=== PATIENT | female | born 1985 | race Two or more races ===

== ENCOUNTER 2021-05-05 10:09 | Emergency (ER) | payer OTHER, SELFPAY ==
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
[2021-05-05 10:44] VITALS: BP 128/60; PULSE 81; RESP 18; TEMP 36.1; O2SAT 99; BMI 27.3
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
[2021-05-05 12:30] VITALS: BP 126/63; PULSE 65; RESP 14; TEMP 36.5; O2SAT 99
== END 2021-05-05 12:35 | disposition home or self-care (01) ==
PROVIDERS: Emergency Provider Internal Medicine
DX: S20.211A Contusion of right front wall of thorax, initial encounter (principal); S80.11XA Contusion of right lower leg, initial encounter; V43.52XA Car driver injured in collision with other type car in traffic accident, initial encounter; Y93.89 Activity, other specified; Y92.414 Local residential or business street as the place of occurrence of the external cause; Y99.9 Unspecified external cause status
CPT/HCPCS: 71046; 73590; 99283

== ENCOUNTER 2024-04-12 13:03 | Inpatient (IN) | payer SELFPAY ==
[2024-04-12] VITALS (7 sets, daily range): BP systolic 120–171; BP diastolic 46–89; PULSE 45–63; RESP 16–22; TEMP 35.8–36.7; O2SAT 96–100; BMI 32.2; BMI 31.6
--- NOTE | ~2024-04-12 | CT_ITS ---
EXAMINATION: CT ABDOMEN AND PELVIS WITH CONTRAST CLINICAL INFORMATION: Hemorrhagic right kidney. COMPARISON: Noncontrast CT abdomen and pelvis from the same day, April 12, 2024, at 2:54 PM TECHNIQUE: Multidetector volumetric images were obtained from the superior aspect of the liver through the pubic symphysis following administration 85 mL of Omnipaque 350 intravenous contrast. Sagittal and coronal reformatted images were obtained on the technologist's workstation. Oral contrast: No This CT examination was performed using dose optimization techniques as appropriate, variously including the following: *Automated exposure control *Adjustment of mA and/or kV according to patient size (this includes techniques or standardized protocols for targeted exams where dose is matched to indication/reason for exam; i.e. extremities or head) *Use of iterative reconstruction technique DLP: 521 mGy-cm FINDINGS: There is a 5 cm exophytic heterogeneously enhancing mass with the fat density component centered in the lateral midportion/lower pole junction of the right kidney. There is a moderate to large volume of increased density fluid involving the perinephric/paranephric compartment resulting in mass effect and extrinsic compression upon the main renal vessels involving mostly the main renal vein. There is active IV contrast pulling/gross extraluminal contrast within the posterior aspect of this mass. There is extrinsic compression upon the inferior vena cava. The hypodensity fluid extends throughout the right retroperitoneum to the iliac crest level anterior to the right psoas iliac muscle. Right-sided pleural effusion. Liver demonstrates no mass. No intrahepatic or extrahepatic biliary ductal dilatation. No focal pancreatic mass. No focal splenic lesion. There is a soft tissue fullness mass appearing right adrenal gland. No nodular lesion in the left adrenal gland. No aneurysm or dissection, abdominal aorta. No intestinal obstruction. No pneumatosis intestinalis. No pneumoperitoneum. Appendix is normal. Bladder is fluid-filled. No gross lesions in the uterus or the adnexa. Multilevel spondylosis more conspicuous at L5-S1. 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 Positive active bleed. Discussed with the requesting physician Dr. Scarlett Duque on April 12, 2024 at 3:30 PM Fleischner guidelines were followed. Electronically signed by: Silvestre Dugan MD 04/12/2024 03:50 PM EST
--- NOTE | ~2024-04-12 | IR_ITS ---
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 COMPARISON: CT abdomen and pelvis 04/12/2024 TECHNIQUE/FINDINGS: Informed consent was obtained following a discussion of the risks and benefits of the procedure with the patient. The patient was placed supine on the fluoroscopy table and the bilateral groins were sterilely prepped and draped. Following the administration of 1% lidocaine for local anesthesia, the right common femoral artery was punctured with a 21-gauge micropuncture needle under direct ultrasound guidance with permanent recordings. A 5 [place] by 45 cm destination sheath was placed. The right renal artery was then selected with a 5 [place] Cobra 2 catheter with the assistance of a 0.035 Glidewire. A right renal angiogram was performed which readily identifies hypervascular tumor arising from the midlower pole right kidney in concordance with recent cross-sectional imaging. We then inserted a 2.4 [place] micro-catheter and investigated several branches in order to determine the branches supplying the tumor for embolization. The lower anterior pole branch of the right renal artery was selected first. Angiogram does not demonstrate significant supply to the tumor. We then selected the lower posterior pole branch of the right renal artery. Angiograms demonstrates 3 third branches with direct supply to the tumor. We selected the most lateral branch first. Angiogram demonstrates supply to the renal tumor with only minimal supply to normal adjacent renal parenchyma. Furthermore, injection into this branch also refluxes into the remaining 2 branches seen to supply the renal tumor. We therefore elected to embolize from this position. Embolization was then performed utilizing 0.5 vial of 100-300 um embosphere particles followed by 0.125 vials of 300-500 um embosphere particles to stasis. Angiogram demonstrates successful embolization however, the medial third order branch is still seen to have some antegrade flow. We then selected this branch. Angiogram demonstrates minimal antegrade flow into a portion of the renal tumor. We therefore embolized with an additional 0.125 vials of 300-500 um embosphere particles to stasis. Angiogram demonstrates successful embolization of this branch. The microcatheter was removed. Right renal angiogram demonstrates successful embolization of the right renal tumor with preserved perfusion to most of the remainder of the kidney. Satisfied with our result we elected terminated the procedure. The 5 [place] x 45 cm sheath was exchanged for a 5 [place] x 11 sheath. Angiogram through the sheath demonstrates no evidence of injury to the right common femoral artery with good flow down the leg. Hemostasis was then achieved with a celt device. A sterile dressing was applied. Patient tolerated procedure well without immediate application. FLUOROSCOPY TIME: 13.7 minutes DOSE AREA PRODUCT: 1550 uGy-m2 (microgray-meter squared) The procedure was performed under moderate sedation utilizing fentanyl and Versed with a dedicated nurse for delivering the medication as well as monitoring of vital signs. Sedation time: 70 minutes IR/IR Embolization Tumor IMPRESSION: Successful embolization of right renal tumor is detailed above. Electronically signed by: Víctor Kirby MD 04/14/2024 04:40 PM [facility]
--- NOTE | ~2024-04-12 | CT_ITS ---
EXAMINATION: CT ABDOMEN AND PELVIS WITHOUT CONTRAST CLINICAL INFORMATION: Right flank pain. COMPARISON: None available. TECHNIQUE: Multidetector volumetric imaging was performed from the superior aspect of the liver through the pubic symphysis. Sagittal and coronal reformatted images were obtained on the technologist's workstation. This CT examination was performed using dose optimization techniques as appropriate, variously including the following: *Automated exposure control *Adjustment of mA and/or kV according to patient size (this includes techniques or standardized protocols for targeted exams where dose is matched to indication/reason for exam; i.e. extremities or head) *Use of iterative reconstruction technique DLP: 539 mGy-cm FINDINGS: Inadequate evaluation of the intra-abdominal organs and vascular structures due to lack of IV contrast. LUNG BASES: Right-sided pleural effusion, small volume. Compression atelectasis right lung base. LIVER, GALLBLADDER, AND BILIARY TREE: Liver measures 19 cm. No pericholecystic fluid collection or gallbladder wall thickening. No intrahepatic or extrahepatic biliary ductal dilatation. PANCREAS: No peripancreatic fluid collections. No main pancreatic ductal dilatation. SPLEEN: 5 cm. Small accessory spleen. ADRENAL GLANDS: 2.5 cm hyperdense nodule, right adrenal gland. No nodular lesion in the left adrenal gland. KIDNEYS AND URETERS: There is a moderate to large volume of increased density fluid within the right kidney and into the perinephric/perirenal compartment extending throughout the right retroperitoneum to the iliac crest level. There is a probable 5 cm mixed fat and increased density lesion within exophytic morphology centered in the lateral midportion/lower pole junction of the right kidney. There is extrinsic compression deformity and displacement of the right main renal vessels in the inferior vena cava, anterior medially. Left kidney: No hydronephrosis or nephrolithiasis. Normal size. BLADDER: Fluid-filled. GASTROINTESTINAL TRACT: Appendix is normal. No pneumoperitoneum. No intestinal obstruction pattern. No pneumatosis intestinalis. Small trace amount of free fluid in the cul-de-sac. ABDOMINAL WALL: Small fat-containing umbilical hernia with diastases abdominal rectus muscles. LYMPH NODES: No gross lymphadenopathy. VASCULAR: No aneurysm, abdominal aorta. PELVIC VISCERA: The uterus and adnexa are not enlarged. OSSEOUS STRUCTURES: Spondylosis, L5-S1 CT/CT abdomen pelvis wo IV con IMPRESSION: Concerning acute hemorrhagic mass, right kidney with a moderate to large hemorrhage/hematoma, retroperitoneum. Recommend IV contrast enhancement. Fleischner guidelines were followed. Electronically signed by: Silvestre Dugan MD 04/12/2024 03:56 PM [facility] TRUJILL[facility]
--- NOTE | 2024-04-12 13:08 | ED_ITS ---
HPI - General Adult General Chief complaint: Abdominal Pain Stated complaint: Kidney stone Time Seen by Provider: 04/12/24 13:46 Source: patient Mode of arrival: ambulatory Limitations: no limitations History of Present Illness ED Provider: PERLA FOX PA-C HPI narrative: 39 year old female with pmhx significant for nephrolithiasis presents to the ED today for evaluation of right lower abdominal pain which began acutely approximately 1 hour ago while she was sitting down at work. Pain has been constant and increasing in intensity since onset. Pain is now radiating to her right upper quadrant. Reports associated nausea and vomiting. Denies chance of secondary to tubal ligation. Denies any other surgical history. Admits to history of renal stones and states she was able to pass them on her own. States this feels similar. Denies fever, chills, constipation, diarrhea, dysuria, hematuria, flank pain. Related Data Home Medications ?Medication ?Instructions ?Recorded ?Confirmed No Known Home Meds 04/12/24 04/12/24 Allergies Allergy/AdvReac Type Severity Reaction Status Date / Time tree nut Allergy Anaphylaxis Verified 04/12/24 13:09 Review of Systems 2 Review of Systems: Constitutional: No fever, chills, fatigue, night sweats, weight changes ENT/Mouth: No ear pain, hearing loss, nasal congestion, sinus pain, rhinorrhea, sore throat Eyes: No eye pain, swelling, redness, vision changes, discharge Cardio: No chest pain, palpitations, NELSON, orthopnea, peripheral edema Pulm: No SOB, cough, sputum, wheezing, dyspnea, hemoptysis GI: No hematemesis, diarrhea, constipation, hematochezia, melena, +nausea, +vomiting, +abdominal pain : No irregular bleeding, dysuria, frequency, urgency, hesitancy, hematuria, flank pain, urinary flow changes, urinary incontinence or retention MSK: No back pain, neck pain, joint pain, myalgias Skin: No lesions, rashes Neuro: No weakness, numbness, paresthesias, LOC, dizziness, headache Psych: No anxiety/panic, depression, SI/HI, AH/VH All other systems reviewed and are negative. [facility] Past Medical History Attestation statement: The following information was validated with the patient. Source: old records reviewed and nursing notes reviewed Medical History Hearing loss Tinnitus Social History Social History Household Members: Children Housing: House Patient Tobacco Use Status: Never used Tobacco e-Cigarette/Vaping Use: Never Used Substance Use Type: Marijuana Physical Exam ED Vital Signs: Vital Signs - 24 hr 04/12/24 13:06 04/12/24 13:49 04/12/24 15:25 Temperature 96.4 F L 97.6 F 97.8 F Pulse Rate 63 53 59 Respiratory Rate 16 18 22 H Blood Pressure 145/83 H 152/77 H 171/74 H Pulse Oximetry 98 100 100 Oxygen Delivery Method Room Air Room Air Room Air 04/12/24 16:36 04/12/24 18:25 Temperature 97.6 F 97.6 F Pulse Rate 45 L 55 Respiratory Rate 18 16 Blood Pressure 160/89 H 120/46 L Pulse Oximetry 97 Oxygen Delivery Method Room Air BMI result Body Mass Index 32.2 hypertensive, afebrile General: Diaphoretic, uncomfortable appearing Skin: Warm, intact. No rashes or lesions. Head: Normocephalic, atraumatic. EENT: Hearing is intact b/l. Conjunctiva clear. PERRLA. EOM intact. Moist mucous membranes.? Neck: Supple without LAD Cardiac: Chest wall symmetric. RRR Lungs: Normal respiratory effort without accessory muscle use. CTA bilaterally Abdomen:+ttp of RLQ and RUQ with guarding. no rebound tenderness. negative rosving sign. negative connor sign. right CVAT. Back: No midline spinous or paraspinal tenderness. No step off deformity. Ext: Upper and lower extremities atraumatic, without tenderness, deformity, swelling or erythema. Full ROM throughout. Neuro: AOx3. Normal speech. Ambulating with steady gait. Psych: Appropriate mood and affect. Responds appropriately to questions. Course Course Course Narrative: RME, this is a rapid medical exam performed by Husam Epps please refer to primary provider for complete H&P- 39-year-old female presents for evaluation of right flank pain. The pain started about an hour ago. She has a history of kidney stones. Plan for labs, urinalysis, CT scan of the abdomen pelvis. Reevaluation(s) Reevaluation #1: 1413 -- Patient now endorsing midsternal chest pain, approximately 15 minutes after she received morphine and zofran. Pain does not radiate. EKG order placed. 1528 -- EKG showing sinus bradycardia with sinus arrhythmia. no acute ischemic changes ot ST elevations. CBC showing leukocytosis to 14. No anemia. H&H stable. Chemistry without acute electrolyte abnormality requiring intervention. No SHIV. Random glucose 163. Total bilirubin is elevated to 1.3, of unknown significance. Liver enzymes are WNL. Lipase WNL at 12. Beta HCG undetectable. Urinalysis pending. > I was called to CT room for concerning findings on dry imaging of abdomen. right kidney appears enlarged with ?mass w/ septations vs perinephric stranding. I did order a second CT with contrast to further evaluate findings. > patient continues endorsing pain after morphine. dilaudid ordered for pain control. 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 Positive active bleed. > I reached out to rn concurrent review urologist, Dr. Ye. Upon reviewing case/image results, he is recommending admission to medicine for pain control, fluids, with plan for possible vessel embolization via IR tomorrow. Patient is stable. She is not hypotensive or tachycardic. I do not have concern for septic shock. Her labs are unremarkable and H&H is currently stable. Will present to hospitalist for admission. Patient is agreeable. Medications Administered Generic Name Dose Route Start Last Admin Trade Name Freq PRN Reason Stop Dose Admin Lactated Ringer's 1,000 mls @ 100 mls/hr 04/12/24 19:30 04/12/24 23:01 Lr IVCONT 100 mls/hr .Q10H SHARITA Administration Metoclopramide HCl 5 mg 04/12/24 18:30 04/12/24 19:15 Metoclopramide Hcl 10 Mg/2 Ml Vial IVPUSH 5 mg Q6H PRN Administration Nausea and Vomiting Sodium Chloride 3 ml 04/13/24 00:00 04/12/24 23:03 0.9 % Sodium Chloride Flush 3 Ml Syringe IVFLUSH 3 ml QSHIFT SHARITA Administration Discontinued Medications Generic Name Dose Route Start Last Admin Trade Name Freq PRN Reason Stop Dose Admin Ceftriaxone Sodium 1 gm 04/12/24 16:54 04/12/24 18:25 Ceftriaxone Sodium 1 Gm Vial IVPUSH 04/12/24 16:55 1 gm ONCE ONE Administration Hydromorphone HCl 0.5 mg 04/12/24 14:12 04/12/24 14:27 Hydromorphone Hcl 0.5 Mg/0.5 Ml Syringe IVPUSH 04/12/24 14:13 0.5 mg ONCE ONE Administration Protocol Hydromorphone HCl 0.5 mg 04/12/24 16:18 04/12/24 16:33 Hydromorphone Hcl 0.5 Mg/0.5 Ml Syringe IVPUSH 04/12/24 16:19 0.5 mg ONCE ONE Administration Protocol Hydromorphone HCl 1 mg 04/12/24 17:24 04/12/24 17:40 Hydromorphone Hcl 1 Mg/Ml Syringe IVPUSH 04/12/24 17:25 1 mg ONCE ONE Administration Protocol Hydromorphone HCl 1 mg 04/12/24 19:12 04/13/24 00:30 Hydromorphone Hcl 1 Mg/Ml Syringe IVPUSH 1 mg Q4H PRN Administration Pain, Severe (Pain Scale 7-10) Protocol Iohexol 85 ml 04/12/24 15:04 04/12/24 15:04 Iohexol 350 Mg/Ml 75 Ml Infus..Btl IV 04/12/24 15:05 85 ml ONCE ONE Administration Morphine Sulfate 4 mg 04/12/24 13:46 04/12/24 13:58 Morphine Sulfate 4 Mg/Ml Cartridge IVPUSH 04/12/24 13:47 4 mg ONCE ONE Administration Protocol Ondansetron HCl 4 mg 04/12/24 13:55 04/12/24 13:58 Ondansetron Hcl 4 Mg/2 Ml Vial IVPUSH 04/12/24 13:56 4 mg ONCE ONE Administration Medical Decision Making Medical Decision Making MDM Narrative: 39 year old female with pmhx significant for nephrolithiasis presents to the ED today for evaluation of right lower abdominal pain which began acutely approximately 1 hour ago while she was sitting down at work. Patient is hypertensive, vitals otherwise WNL. Afebrile. She is uncomfortable appearing, diaphoretic. Exam significant for soft abdomen, nondistended, tender to palpation of both right upper and right lower quadrants with guarding. There is no rebound tenderness. Negative Rovsing sign. Negative connor sign. There is right-sided CVAT. Differential diagnoses: appendicitis, diverticulitis, diverticulosis, UTI, IUP, renal colic, nephrolithiasis, hydronephrosis, renal mass Abdominal exam without peritoneal signs. No evidence of acute abdomen at this time. Well appearing. Low suspicion for acute hepatobiliary disease (including acute cholecystitis), acute infectious processes (pneumonia, hepatitis, pyelonephritis, PID, TOA), vascular catastrophe, bowel obstruction or viscus perforation, ovarian cyst/ rupture/ torsion, ectopic. Presentation not consistent with other acute, emergent causes of abdominal pain at this time. Plan: labs, UA, CT AP, pain control, re-evaluation. Differential Diagnosis Differential Diagnoses: The differential diagnosis associated with the presentation includes as above. 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 Ye, urologist ) Lab Data MDM Lab Attestation statement: I reviewed the patient's lab results. As above 04/13/24 05:46 04/12/24 13:43 Labs: Lab Results 04/12/24 04/12/24 04/12/24 Range/Units 13:43 16:19 18:04 WBC 14.0 H (4.8-10.8) X10*3/uL RBC 4.96 (4.20-5.50) X10*6/uL Hgb 14.1 11.7 L (12.0-16.0) g/dl Hct 41.9 34.2 L (37.0-47.0) % MCV 84.5 (80.0-98.0) fL MCH 28.4 (27.0-33.0) pg MCHC 33.7 (31.0-35.0) g/dl RDW 13.6 (11.0-16.0) % Plt Count 249 (160-400) X10*3/uL MPV 12.1 (9.4-12.3) fL Immature Gran % (Auto) 0.3 (0.0-0.4) % Neut % (Auto) 76.5 H (45-73) % Lymph % (Auto) 15.8 L (20-40) % [place] % (Auto) 5.9 (2-11) % Eos % (Auto) 1.0 (0-4) % Baso % (Auto) 0.5 (0-2) % Lymph # (Auto) 2.2 (1.2-4.9) X10*3/uL [place] # (Auto) 0.8 (0.1-1.2) X10*3/uL Eos # (Auto) 0.1 (0.0-0.4) X10*3/uL Baso # (Auto) 0.1 (0.0-0.2) X10*3/uL Abs Immat Gran (auto) 0.04 H (0.00-0.03) X10*3/uL Absolute Neuts (auto) 10.7 H (2.0-8.3) x10*3/uL Absolute Nucleated RBC 0.000 (0.0-0.012) X10*3/uL Nucleated RBC % (auto) 0.0 (0.0-0.2) /100WBC Sodium 142 (135-145) mmol/L Potassium 3.5 (3.3-5.1) mmol/L Chloride 108 (96-108) mmol/L Carbon Dioxide 24 (22-29) mmol/L Anion Gap 14 (12-20) BUN 12 (9-16) mg/dL Creatinine 0.83 (0.5-1.4) mg/dL Estim Creat Clear Calc 80.6 Estimated GFR > 60 Random Glucose 163 H (60-115) mg/dL Calcium 9.5 (8.4-10.2) mg/dL Total Bilirubin 1.3 H (0.0-1.0) mg/dL AST 27 (5-31) U/L ALT 15 (0-31) U/L Alkaline Phosphatase 73 (39-117) U/L Total Protein 7.9 (6.5-8.0) g/dL Albumin 4.5 (3.5-5.0) g/dL Lipase 12 (8-78) U/L Beta HCG, Quant < 2 mIU/mL Urine Color Yellow Urine Appearance Cloudy Urine pH 6.0 (5.0-9.0) Ur Specific [place] >= 1.030 H (1.005-1.025) Urine Protein 30 (1+) H (Neg-Trace) mg/dL Urine Glucose (UA) Negative (Negative) mg/dL Urine Ketones Trace (Negative) mg/dL Urine Blood Large (3+) H (Negative) Urine Nitrite Negative (Negative) Ur Leukocyte Esterase Negative (Negative) Urine RBC 0-2 (0-2) /HPF Urine WBC 0-5 (0-5) /HPF Ur Squamous Epith Cells 6-10 (0-2) /HPF Other Crystals Present Urine Bacteria 4+ (None Seen) Hyaline Casts 3-5 (0-2) /LPF Independent Interpretation I performed an independent interpretation of an: CT Scan Interpretation: CT AP showing right renal mass EKG showing sinus bradycardia with sinus arrhythmia, rate of 56 BPM, QT 442, QTC 426, no acute ischemic changes or ST elevations Radiology Impression Discussion of test interpretation with radiology: I have reviewed the radiologist's reading. Radiologist Impression: EXAMINATION: CT ABDOMEN AND PELVIS WITHOUT CONTRAST CLINICAL INFORMATION: Right flank pain. COMPARISON: None available. TECHNIQUE: Multidetector volumetric imaging was performed from the superior aspect of the liver through the pubic symphysis. Sagittal and coronal reformatted images were obtained on the technologist's workstation. This CT examination was performed using dose optimization techniques as appropriate, variously including the following: *Automated exposure control *Adjustment of mA and/or kV according to patient size (this includes techniques or standardized protocols for targeted exams where dose is matched to indication/reason for exam; i.e. extremities or head) *Use of iterative reconstruction technique DLP: 539 mGy-cm FINDINGS: Inadequate evaluation of the intra-abdominal organs and vascular structures due to lack of IV contrast. LUNG BASES: Right-sided pleural effusion, small volume. Compression atelectasis right lung base. LIVER, GALLBLADDER, AND BILIARY TREE: Liver measures 19 cm. No pericholecystic fluid collection or gallbladder wall thickening. No intrahepatic or extrahepatic biliary ductal dilatation. PANCREAS: No peripancreatic fluid collections. No main pancreatic ductal dilatation. SPLEEN: 5 cm. Small accessory spleen. ADRENAL GLANDS: 2.5 cm hyperdense nodule, right adrenal gland. No nodular lesion in the left adrenal gland. KIDNEYS AND URETERS: There is a moderate to large volume of increased density fluid within the right kidney and into the perinephric/perirenal compartment extending throughout the right retroperitoneum to the iliac crest level. There is a probable 5 cm mixed fat and increased density lesion within exophytic morphology centered in the lateral midportion/lower pole junction of the right kidney. There is extrinsic compression deformity and displacement of the right main renal vessels in the inferior vena cava, anterior medially. Left kidney: No hydronephrosis or nephrolithiasis. Normal size. BLADDER: Fluid-filled. GASTROINTESTINAL TRACT: Appendix is normal. No pneumoperitoneum. No intestinal obstruction pattern. No pneumatosis intestinalis. Small trace amount of free fluid in the cul-de-sac. ABDOMINAL WALL: Small fat-containing umbilical hernia with diastases abdominal rectus muscles. LYMPH NODES: No gross lymphadenopathy. VASCULAR: No aneurysm, abdominal aorta. PELVIC VISCERA: The uterus and adnexa are not enlarged. OSSEOUS STRUCTURES: Spondylosis, L5-S1 CT/CT abdomen pelvis wo IV con IMPRESSION: Concerning acute hemorrhagic mass, right kidney with a moderate to large hemorrhage/hematoma, retroperitoneum. Recommend IV contrast enhancement. Fleischner guidelines were followed. Electronically signed by: Silvestre Dugan MD 04/12/2024 03:56 PM [facility] External Record Review External record reviewed: Inpatient record Prescription Management I considered prescription management with: Pain Medication and Antibiotic Chronic Conditions Patient?s care impacted by: Other (nephrolithiasis) Social Determinants Patient?s care significantly limited by Social Determinants of Health including: Other Social Determinant of Health Critical Care Time Critical Care Time Critical Care Time: Yes Total Critical Care Time: 38 Attestation: Critical care time in the amount of 38 minutes has been provided to the patient in terms of direct patient care, frequent reevaluation on IV dilaudid, consultation with urology and hospitalist, review and interpretation of medical data and results, and management of potentially life-threatening conditions. This is all outside of any medical procedures. Discharge Plan Discharge Clinical Impression: Hemorrhage of right kidney Patient Disposition: Admitted As Inpatient Interventions: Admission Worksheet (ED) Last Done: 04/12/24 20:04 Discharge Date/Time: 04/12/24 23:06
[2024-04-12 13:47] LABS: MANUAL DIFF FLAG NO
[2024-04-12 13:48] LABS: Basophils Absolute Auto 0.1 X10*3/uL (0.0-0.2); Basophils Percent Auto 0.5 % (0-2); Eosinophils Absolute Auto 0.1 X10*3/uL (0.0-0.4); Hematocrit 41.9 % (37.0-47.0); Hemoglobin 14.1 g/dl (12.0-16.0); Imm Gran Abs Auto 0.04 X10*3/uL (0.00-0.03); Imm Gran Pct Auto 0.3 % (0.0-0.4); Lymphocytes Absolute Auto 2.2 X10*3/uL (1.2-4.9); Lymphocytes Percent Auto 15.8 % (20-40); Mean Corpuscular HGB Conc 33.7 g/dl (31.0-35.0); Mean Corpuscular Hemoglobin 28.4 pg (27.0-33.0); Mean Corpuscular Volume 84.5 fL (80.0-98.0); Mean Platelet Volume 12.1 fL (9.4-12.3); Monocytes Absolute Auto 0.8 X10*3/uL (0.1-1.2); Monocytes Percent Auto 5.9 % (2-11); Neutrophils Absolute Auto 10.7 x10*3/uL (2.0-8.3); Neutrophils Percent Auto 76.5 % (45-73); Platelet Count 249 X10*3/uL (160-400); Red Blood Count 4.96 X10*6/uL (4.20-5.50); Red Cell Distribution Width 13.6 % (11.0-16.0)
--- NOTE | 2024-04-12 13:53 | PC.NURSE ---
PT WRITHING IN PAIN. ELIZABETH youssef approached for pain meds. Fluids up. pt diaphoretic and unable to find position of comfort. pain is right flank and feels like a stone.
[2024-04-12] MEDS: Morphine Sulfate 4 MG/ML CARTRIDGE IVPUSH (13:58)
[2024-04-12] MEDS: ondansetron HCL 4 MG/2 ML VIAL IVPUSH (13:58)
--- NOTE | 2024-04-12 14:12 | ECG_ITS ---
Test Reason : abd pain Blood Pressure : / mmHG Vent. Rate : 056 BPM Atrial Rate : 056 BPM P-R Int : 120 ms QRS Dur : 068 ms QT Int : 442 ms P-R-T Axes : 025 010 012 degrees QTc Int : 426 ms Sinus bradycardia with sinus arrhythmia Otherwise normal ECG No previous ECGs available Referred By: Scarlett Zarate Electronically Signed By:MADONNA MONTOYA
[2024-04-12 14:16] LABS: Alanine Aminotransferase 15 U/L (0-31); Albumin Level 4.5 g/dL (3.5-5.0); Alkaline Phosphatase 73 U/L (39-117); Anion Gap 14 (12-20); Aspartate Amino Transferase 27 U/L (5-31); Bilirubin Total 1.3 mg/dL (0.0-1.0); Blood Urea Nitrogen 12 mg/dL (9-16); Calcium 9.5 mg/dL (8.4-10.2); Carbon Dioxide 24 mmol/L (22-29); Chloride 108 mmol/L (96-108); Creatinine Clr Calc Pharmacy 80.6; Estimated Glomerular Filt Rate > 60; Glucose Random 163 mg/dL (60-115); HCG Quantitative < 2 mIU/mL; Lipase 12 U/L (8-78); Potassium 3.5 mmol/L (3.3-5.1); Sodium 142 mmol/L (135-145); Total Protein 7.9 g/dL (6.5-8.0)
[2024-04-12] MEDS: HYDROmorphone HCl 0.5 MG/0.5 ML SYRINGE IVPUSH ×2 (14:27→16:33)
[2024-04-12] MEDS: iohexoL 350 MG/ML 75 ML INFUS..BTL 85 ML IV (15:04)
[2024-04-12 16:28] LABS: Appearance Urine Cloudy; Color Urine Yellow; Glucose Urine UA Negative (Negative); Leukocyte Esterase Urine Negative (Negative); Nitrite Urine Negative (Negative); Specific Gravity - Urine >= 1.030 (1.005-1.025); UMIC TRIGGER UACC YES; Urine Blood Large (3+) (Negative); Urine Ketones Trace mg/dL (Negative); Urine Protein 30 (1+) mg/dL (Neg-Trace)
--- NOTE | 2024-04-12 16:37 | PC.NURSE ---
Medicated for RUQ pain. Pain is more manageable but still not under control. Pt is unable to stand for urine. needed to use bedpan. skin pwd. SB on monitor. is aware of plan for admission.
[2024-04-12 16:39] LABS: Bacteria Urine 4+ (None Seen); Other Crystals Urine Present; RBC Urine 0-2 /HPF (0-2); WBC Urine 0-5 /HPF (0-5)
--- NOTE | 2024-04-12 16:39 | PC.NURSE ---
last PO intake was breakfast but she vomited up everything.
[2024-04-12] MEDS: HYDROmorphone HCl 1 MG/ML SYRINGE IVPUSH (17:40)
--- NOTE | 2024-04-12 18:06 | PHA.MEDREC ---
Addendum entered by Shania Galvan RPh 04/12/24 18:09: Med rec was reviewed by Ej. Original Note: Pharmacy Consult ? Medication Reconciliation Pharmacy has completed the medication reconciliation. Patient states she isn't taking any medications at this time. Patient states she took Ibuprofen 800 to day only.
[2024-04-12 18:10] LABS: Hematocrit 34.2 % (37.0-47.0); Hemoglobin 11.7 g/dl (12.0-16.0)
[2024-04-12] MEDS: cefTRIAXone sodium 1 GM VIAL IVPUSH (18:25)
--- NOTE | 2024-04-12 18:32 | P.HPHOSP_ITS ---
History of Present Illness Date of Service: 04/12/24 [facility] Medical History Hearing loss Tinnitus Social History Smoked in Last 30 Days: No Use of substances other than those prescribed or required for medical reasons: No Substance Use Type: Marijuana Advance Directives: No Advance Directives Information Provided: Yes Do you have a plan to hurt others: No Plan Patient : No Meds Allergies Allergy/AdvReac Type Severity Reaction Status Date / Time tree nut Allergy Anaphylaxis Verified 04/12/24 13:09 Home Medications ?Medication ?Instructions ?Recorded ?Confirmed ?Last Taken ?Type No Known Home Meds 04/12/24 04/12/24 Unknown History Physical Exam 2 Vital Signs and Narrative: Vital Signs: Last Vital Signs Temp 97.6 F 04/12/24 18:25 Pulse 55 04/12/24 18:25 Resp 16 04/12/24 18:25 BP 120/46 L 04/12/24 18:25 Pulse Ox 97 04/12/24 16:36 O2 Del Method Room Air 04/12/24 16:36 BMI result Body Mass Index 32.2 Results Labs 04/12/24 18:04 04/12/24 13:43 Labs: Laboratory Results - last 24 hr 04/12/24 04/12/24 13:43 16:19 MCV 84.5 MCH 28.4 MCHC 33.7 RDW 13.6 Plt Count 249 MPV 12.1 Immature Gran % (Auto) 0.3 Neut % (Auto) 76.5 H Lymph % (Auto) 15.8 L [place] % (Auto) 5.9 Eos % (Auto) 1.0 Baso % (Auto) 0.5 Lymph # (Auto) 2.2 [place] # (Auto) 0.8 Eos # (Auto) 0.1 Baso # (Auto) 0.1 Abs Immat Gran (auto) 0.04 H Absolute Neuts (auto) 10.7 H Absolute Nucleated RBC 0.000 Nucleated RBC % (auto) 0.0 Anion Gap 14 Estim Creat Clear Calc 80.6 Estimated GFR > 60 Random Glucose 163 H Calcium 9.5 Total Bilirubin 1.3 H AST 27 ALT 15 Alkaline Phosphatase 73 Total Protein 7.9 Albumin 4.5 Lipase 12 Beta HCG, Quant < 2 Urine Color Yellow Urine Appearance Cloudy Urine pH 6.0 Ur Specific [place] >= 1.030 H Urine Protein 30 (1+) H Urine Glucose (UA) Negative Urine Ketones Trace Urine Blood Large (3+) H Urine Nitrite Negative Ur Leukocyte Esterase Negative Urine RBC 0-2 Urine WBC 0-5 Ur Squamous Epith Cells 6-10 Other Crystals Present Urine Bacteria 4+ Hyaline Casts 3-5 Imaging Radiologist's Impressions: Impressions Abdomen/Pelvis CT 04/12/24 13:08 IMPRESSION: Concerning acute hemorrhagic mass, right kidney with a moderate to large hemorrhage/hematoma, retroperitoneum. Recommend IV contrast enhancement. Fleischner guidelines were followed. 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 Positive active bleed. Discussed with the requesting physician Dr. Scareltt Duque on April 12, 2024 at 3:30 PM Fleischner guidelines were followed. Electronically signed by: Silvestre Dugan MD 04/12/2024 03:50 PM EST RP
--- NOTE | 2024-04-12 19:14 | P.HPHOSP_ITS ---
History of Present Illness Date of Service: 04/12/24 Chief Complaint: Abdominal pain This is a 39-year-old female with pertinent history of nephrolithiasis, prediabetes who presents to the emergency department for evaluation of abdominal pain. Patient states she had sudden onset of right sided lower abdominal pain that started around noon. It was constant, nonradiating and progressive in nature. No history of similar pain in the past. Does have a history of kidney stones. Also has associated nausea and vomiting. No fever or chills. Grandfather with history of kidney cancer. No chest pain, palpitations, shortness of breath, changes in urinary or bowel habits. In the emergency department, imaging with acute renal hemorrhage. Urology was consulted who requested admission with IV analgesia and IV fluids. Review of Systems 2 Constitutional: Constitutional: Reports no additional constitutional complaints Cardiovascular: Cardiovascular: Reports no additional cardiovascular complaints Gastrointestinal: Gastrointestinal: Reports abdominal pain, Reports nausea and Reports vomiting Genitourinary: Genitourinary: Reports no additional female genitourinary complaints [facility] Medical History Hearing loss Tinnitus Pertinent family history: Grandfather with kidney and liver cancer Social History Smoked in Last 30 Days: No Use of substances other than those prescribed or required for medical reasons: No Substance Use Type: Marijuana Advance Directives: No Advance Directives Information Provided: Yes Do you have a plan to hurt others: No Plan Patient : No Meds Allergies Allergy/AdvReac Type Severity Reaction Status Date / Time tree nut Allergy Anaphylaxis Verified 04/12/24 13:09 Active Medications: Current Medications Metoclopramide HCl (Metoclopramide Hcl 10 Mg/2 Ml Vial) 5 mg IVPUSH Q6H PRN PRN Reason: Nausea and Vomiting Home Medications ?Medication ?Instructions ?Recorded ?Confirmed ?Last Taken ?Type No Known Home Meds 04/12/24 04/12/24 Unknown History Physical Exam 2 Vital Signs and Narrative: Vital Signs: Last Vital Signs Temp 97.6 F 04/12/24 18:25 Pulse 55 04/12/24 18:25 Resp 16 04/12/24 18:25 BP 120/46 L 04/12/24 18:25 Pulse Ox 97 04/12/24 16:36 O2 Del Method Room Air 04/12/24 16:36 BMI result Body Mass Index 32.2 Middle-aged female lying in bed in mild distress Neck supple, no JVD Regular rate and rhythm, S1-S2 heard Regular breath sounds bilaterally, no wheezing or crackles appreciated Abdomen with right-sided tenderness, no rigidity Patient is awake, alert and oriented to self, place, time and person ; no focal motor deficit Psych: Normal mood No pedal edema Results Labs 04/12/24 18:04 04/12/24 13:43 Labs: Laboratory Results - last 24 hr 04/12/24 04/12/24 13:43 16:19 MCV 84.5 MCH 28.4 MCHC 33.7 RDW 13.6 Plt Count 249 MPV 12.1 Immature Gran % (Auto) 0.3 Neut % (Auto) 76.5 H Lymph % (Auto) 15.8 L [place] % (Auto) 5.9 Eos % (Auto) 1.0 Baso % (Auto) 0.5 Lymph # (Auto) 2.2 [place] # (Auto) 0.8 Eos # (Auto) 0.1 Baso # (Auto) 0.1 Abs Immat Gran (auto) 0.04 H Absolute Neuts (auto) 10.7 H Absolute Nucleated RBC 0.000 Nucleated RBC % (auto) 0.0 Anion Gap 14 Estim Creat Clear Calc 80.6 Estimated GFR > 60 Random Glucose 163 H Calcium 9.5 Total Bilirubin 1.3 H AST 27 ALT 15 Alkaline Phosphatase 73 Total Protein 7.9 Albumin 4.5 Lipase 12 Beta HCG, Quant < 2 Urine Color Yellow Urine Appearance Cloudy Urine pH 6.0 Ur Specific [place] >= 1.030 H Urine Protein 30 (1+) H Urine Glucose (UA) Negative Urine Ketones Trace Urine Blood Large (3+) H Urine Nitrite Negative Ur Leukocyte Esterase Negative Urine RBC 0-2 Urine WBC 0-5 Ur Squamous Epith Cells 6-10 Other Crystals Present Urine Bacteria 4+ Hyaline Casts 3-5 Imaging Radiologist's Impressions: Impressions Abdomen/Pelvis CT 04/12/24 13:08 IMPRESSION: Concerning acute hemorrhagic mass, right kidney with a moderate to large hemorrhage/hematoma, retroperitoneum. Recommend IV contrast enhancement. Fleischner guidelines were followed. 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 Positive active bleed. Discussed with the requesting physician Dr. Scarlett Duque on April 12, 2024 at 3:30 PM Fleischner guidelines were followed. Electronically signed by: Silvestre Dugan MD 04/12/2024 03:50 PM EST RP Assessment and Plan (1) Renal hemorrhage, right: Status: Acute Plan This is a 39-year-old female with pertinent history of nephrolithiasis, prediabetes who presents to the emergency department for evaluation of abdominal pain. #. 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 Will admit patient with close hemodynamic monitoring. IV opioids p.r.n. for analgesia. IV crystalloid resuscitation. Urology consulted from the ER, appreciate assistance. Consulted IR for possible CARLY. Closely monitor H&H #. Prediabetes: Diet controlled #. Leukocytosis, reactive DVT prophylaxis: Mechanical Full code Admit as inpatient and will require two night minimum hospital stay for close hemodynamic monitoring, monitoring of H&H, IV opiates (as above), which is not possible in a lesser acute setting. Specialist consult pending Quality Stroke Does the patient have a stroke diagnosis?: No VTE Prior VTE?: No VTE Risk Level:: Medical - moderate - high VTE Device Contraindication: N/A - Device Ordered VTE Drug Contraindication: Treatment Not Indicated
[2024-04-12] MEDS: Metoclopramide HCl 10 MG/2 ML VIAL 5 MG IVPUSH (19:15)
[2024-04-12] MEDS: Lactated Ringers 1,000 ML 100 ML IVCONT (23:01)
[2024-04-12] MEDS: 0.9 % Sodium Chloride Flush 3 ML SYRINGE IVFLUSH (23:03)
[2024-04-13] VITALS (18 sets, daily range): BP systolic 115–176; BP diastolic 64–95; PULSE 59–117; RESP 15–20; TEMP 36.2–37.4; O2SAT 92–98
--- NOTE | 2024-04-13 | ECG_ITS ---
Test Reason : tachycardia Blood Pressure : / mmHG Vent. Rate : 121 BPM Atrial Rate : 000 BPM P-R Int : 000 ms QRS Dur : 080 ms QT Int : 310 ms P-R-T Axes : 000 011 -01 degrees QTc Int : 440 ms Atrial fibrillation with rapid ventricular response Abnormal ECG When compared with ECG of 12-APR-2024 14:28, Atrial fibrillation has replaced Sinus rhythm Vent. rate has increased BY 65 BPM Referred By: Giorgio Zuniga Electronically Signed By:MADONNA MONTOYA
[2024-04-13] MEDS: HYDROmorphone HCl 1 MG/ML SYRINGE IVPUSH (00:30)
[2024-04-13 05:54] LABS: MANUAL DIFF FLAG NO
[2024-04-13 05:59] LABS: Basophils Percent Auto 0.2 % (0-2); Hemoglobin 11.4 g/dl (12.0-16.0); Imm Gran Abs Auto 0.08 X10*3/uL (0.00-0.03); Imm Gran Pct Auto 0.5 % (0.0-0.4); Lymphocytes Absolute Auto 1.5 X10*3/uL (1.2-4.9); Lymphocytes Percent Auto 8.8 % (20-40); Mean Corpuscular HGB Conc 33.5 g/dl (31.0-35.0); Mean Corpuscular Hemoglobin 28.4 pg (27.0-33.0); Mean Corpuscular Volume 84.8 fL (80.0-98.0); Mean Platelet Volume 11.9 fL (9.4-12.3); Monocytes Absolute Auto 1.5 X10*3/uL (0.1-1.2); Monocytes Percent Auto 8.3 % (2-11); Neutrophils Absolute Auto 14.4 x10*3/uL (2.0-8.3); Neutrophils Percent Auto 82.2 % (45-73); Platelet Count 245 X10*3/uL (160-400); Red Blood Count 4.01 X10*6/uL (4.20-5.50); Red Cell Distribution Width 13.9 % (11.0-16.0); White Blood Count 17.6 X10*3/uL (4.8-10.8)
[2024-04-13] MEDS: HYDROmorphone HCl 0.5 MG/0.5 ML SYRINGE IVPUSH (06:17)
[2024-04-13 06:21] LABS: Anion Gap 14 (12-20); Blood Urea Nitrogen 13 mg/dL (9-16); Carbon Dioxide 23 mmol/L (22-29); Chloride 110 mmol/L (96-108); Estimated Glomerular Filt Rate > 60; Glucose Random 136 mg/dL (60-115); Potassium 4.5 mmol/L (3.3-5.1); Sodium 142 mmol/L (135-145)
[2024-04-13] MEDS: HYDROmorphone HCl 1 MG/ML SYRINGE 0.5 MG IVPUSH ×5 (08:29→22:55)
[2024-04-13] MEDS: Lactated Ringers 1,000 ML 100 ML IVCONT ×2 (08:31→17:07)
[2024-04-13] MEDS: 0.9 % Sodium Chloride Flush 3 ML SYRINGE IVFLUSH ×2 (08:33→20:02)
--- NOTE | 2024-04-13 08:40 | P.PNIM_ITS ---
Subjective Subjective Date of Service: 04/13/24 Interval History: Right flank pain Physical Exam 2 Vital Signs: Vital Signs: Last Vital Signs Temp 98 F 04/13/24 07:07 Pulse 92 04/13/24 07:07 Resp 18 04/13/24 08:29 BP 134/78 04/13/24 07:07 Pulse Ox 98 04/13/24 07:07 O2 Del Method Room Air 04/13/24 07:07 BMI result Body Mass Index 31.6 General: AO X 3, no acute distress Resp: CTA bilateral, no accessory muscles used CVS: S1,S2,RRR GI: soft, non tender, non distended Neuro: motor grossly intact, alert Psych: appropriate affect, appropriate insight Objective Data Active Medications Acetaminophen (Acetaminophen 325 Mg Tablet) 650 mg PO Q6H PRN PRN Reason: Pain, Mild (Pain Scale 1-3), fever or headache Calcium Carbonate (Calcium Carbonate 750 Mg Tab.Chew) 750 mg PO Q4H PRN PRN Reason: Heartburn Hydromorphone HCl (Hydromorphone Hcl 1 Mg/Ml Syringe) 0.5 mg IVPUSH Q2H PRN; Protocol PRN Reason: Pain, Severe (Pain Scale 7-10) Last Admin: 04/13/24 08:29 Dose: 0.5 mg Documented By: BLANKA Lactated Ringer's (Lr) 1,000 mls @ 100 mls/hr IVCONT .Q10H [facility] Last Admin: 04/13/24 08:31 Dose: 100 mls/hr Documented By: BLANKA Magnesium Hydroxide (Milk Of Magnesia 30 Ml Oral.Susp) 30 ml PO DAILY PRN PRN Reason: Constipation Melatonin (Melatonin 3 Mg Tablet) 6 mg PO BEDTIME PRN PRN Reason: Insomnia Metoclopramide HCl (Metoclopramide Hcl 10 Mg/2 Ml Vial) 5 mg IVPUSH Q6H PRN PRN Reason: Nausea and Vomiting Last Admin: 04/12/24 19:15 Dose: 5 mg Documented By: JEFF Ondansetron HCl (Ondansetron Hcl 4 Mg/2 Ml Vial) 4 mg IVPUSH Q8H PRN PRN Reason: Nausea and Vomiting Sodium Chloride (0.9 % Sodium Chloride Flush 3 Ml Syringe) 3 ml IVFLUSH QSHIFT [facility] Last Admin: 04/13/24 08:33 Dose: 3 ml Documented By: BLANKA Labs 04/13/24 05:46 04/13/24 05:46 Labs: Laboratory Results - last 24 hr 04/12/24 04/12/24 04/12/24 13:43 16:19 20:05 MCV 84.5 MCH 28.4 MCHC 33.7 RDW 13.6 Plt Count 249 MPV 12.1 Immature Gran % (Auto) 0.3 Neut % (Auto) 76.5 H Lymph % (Auto) 15.8 L [place] % (Auto) 5.9 Eos % (Auto) 1.0 Baso % (Auto) 0.5 Lymph # (Auto) 2.2 [place] # (Auto) 0.8 Eos # (Auto) 0.1 Baso # (Auto) 0.1 Abs Immat Gran (auto) 0.04 H Absolute Neuts (auto) 10.7 H Absolute Nucleated RBC 0.000 Nucleated RBC % (auto) 0.0 Anion Gap 14 Estim Creat Clear Calc 80.6 Estimated GFR > 60 Random Glucose 163 H Calcium 9.5 Total Bilirubin 1.3 H AST 27 ALT 15 Alkaline Phosphatase 73 Total Protein 7.9 Albumin 4.5 Lipase 12 Beta HCG, Quant < 2 Urine Color Yellow Urine Appearance Cloudy Urine pH 6.0 Ur Specific [place] >= 1.030 H Urine Protein 30 (1+) H Urine Glucose (UA) Negative Urine Ketones Trace Urine Blood Large (3+) H Urine Nitrite Negative Ur Leukocyte Esterase Negative Urine RBC 0-2 Urine WBC 0-5 Ur Squamous Epith Cells 6-10 Other Crystals Present Urine Bacteria 4+ Hyaline Casts 3-5 Blood Type O Positive Antibody Screen NEGATIVE 04/13/24 05:46 MCV 84.8 MCH 28.4 MCHC 33.5 RDW 13.9 Plt Count 245 MPV 11.9 Immature Gran % (Auto) 0.5 H Neut % (Auto) 82.2 H Lymph % (Auto) 8.8 L [place] % (Auto) 8.3 Eos % (Auto) 0.0 Baso % (Auto) 0.2 Lymph # (Auto) 1.5 [place] # (Auto) 1.5 H Eos # (Auto) 0.0 Baso # (Auto) 0.0 Abs Immat Gran (auto) 0.08 H Absolute Neuts (auto) 14.4 H Absolute Nucleated RBC 0.000 Nucleated RBC % (auto) 0.0 Anion Gap 14 Estim Creat Clear Calc 92.0 Estimated GFR > 60 Random Glucose 136 H Calcium 9.0 Total Bilirubin AST ALT Alkaline Phosphatase Total Protein Albumin Lipase Beta HCG, Quant Urine Color Urine Appearance Urine pH Ur Specific [place] Urine Protein Urine Glucose (UA) Urine Ketones Urine Blood Urine Nitrite Ur Leukocyte Esterase Urine RBC Urine WBC Ur Squamous Epith Cells Other Crystals Urine Bacteria Hyaline Casts Blood Type Antibody Screen Assessment and Plan (1) Renal hemorrhage, right: Status: Acute Plan 39F no significant PMH presented with right flank pain found to have acute renal hemorrhage Acute renal hemorrhage due to 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 Monitor CBC DVT prophylaxis-mechanical due to hemorrhage Full code reason for continued hospitalization: Pain control Quality Stroke Does the patient have a stroke diagnosis?: No VTE Prior VTE?: No VTE Risk Level:: Medical - moderate - high VTE Device Contraindication: N/A - Device Ordered VTE Drug Contraindication: Treatment Not Indicated
--- NOTE | 2024-04-13 08:42 | P.EN_ITS ---
Event Note Date of Service: 04/13/24 Event Note: INTERVENTIONAL RADIOLOGY CONSULT History of Present Illness Date of Service: 04/13/24 Chief Complaint: Abdominal pain 39-year-old female with PMH of nephrolithiasis, prediabetes who presents to [facility] with sudden onset of right sided abdominal pain. She also reports nausea and vomiting due to pain. 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 Review of Systems Constitutional: Constitutional: No fevers or chuills Cardiovascular: Cardiovascular: No chest pain or SOB Gastrointestinal: Gastrointestinal: Reports abdominal pain, Reports nausea and Reports vomiting Genitourinary: Genitourinary: No hematuria [facility] Medical History Hearing loss Tinnitus Nephrolithiasis Pertinent family history: Grandfather with kidney and liver cancer Social History Smoked in Last 30 Days: No Use of substances other than those prescribed or required for medical reasons: No Substance Use Type: Marijuana Advance Directives: No Advance Directives Information Provided: Yes Do you have a plan to hurt others: No Plan Patient : No Meds Allergies Allergy/AdvReac Type Severity Reaction Status Date / Time tree nut Allergy Anaphylaxis Verified 04/12/24 13:09 Physical Exam Vital Signs and Narrative: Vital Signs: Last Vital Signs Temp 97.6 F 04/12/24 18:25 Pulse 55 04/12/24 18:25 Resp 16 04/12/24 18:25 BP 120/46 L 04/12/24 18:25 Pulse Ox 97 04/12/24 16:36 O2 Del Method Room Air 04/12/24 16:36 BMI result Body Mass Index 32.2 Middle-aged female lying in bed in mild distress Neck supple, no JVD Regular rate and rhythm, S1-S2 heard Regular breath sounds bilaterally, no wheezing or crackles appreciated Abdomen with right-sided tenderness, no rigidity Patient is awake, alert and oriented to self, place, time and person ; no focal motor deficit Psych: Normal mood No pedal edema Results Labs 04/12/24 18:04 04/12/24 13:43 Labs: Laboratory Results - last 24 hr 04/12/24 04/12/24 13:43 16:19 MCV 84.5 MCH 28.4 MCHC 33.7 RDW 13.6 Plt Count 249 MPV 12.1 Immature Gran % (Auto) 0.3 Neut % (Auto) 76.5 H Lymph % (Auto) 15.8 L [place] % (Auto) 5.9 Eos % (Auto) 1.0 Baso % (Auto) 0.5 Lymph # (Auto) 2.2 [place] # (Auto) 0.8 Eos # (Auto) 0.1 Baso # (Auto) 0.1 Abs Immat Gran (auto) 0.04 H Absolute Neuts (auto) 10.7 H Absolute Nucleated RBC 0.000 Nucleated RBC % (auto) 0.0 Anion Gap 14 Estim Creat Clear Calc 80.6 Estimated GFR > 60 Random Glucose 163 H Calcium 9.5 Total Bilirubin 1.3 H AST 27 ALT 15 Alkaline Phosphatase 73 Total Protein 7.9 Albumin 4.5 Lipase 12 Beta HCG, Quant < 2 Urine Color Yellow Urine Appearance Cloudy Urine pH 6.0 Ur Specific [place] >= 1.030 H Urine Protein 30 (1+) H Urine Glucose (UA) Negative Urine Ketones Trace Urine Blood Large (3+) H Urine Nitrite Negative Ur Leukocyte Esterase Negative Urine RBC 0-2 Urine WBC 0-5 Ur Squamous Epith Cells 6-10 Other Crystals Present Urine Bacteria 4+ Hyaline Casts 3-5 Imaging Radiologist's Impressions: Impressions Abdomen/Pelvis CT 04/12/24 13:08 IMPRESSION: Concerning acute hemorrhagic mass, right kidney with a moderate to large hemorrhage/hematoma, retroperitoneum. Recommend IV contrast enhancement. Fleischner guidelines were followed. 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 Positive active bleed. Discussed with the requesting physician Dr. Scarlett Duque on April 12, 2024 at 3:30 PM Fleischner guidelines were followed. Electronically signed by: Silvestre Dugan MD 04/12/2024 03:50 PM EST RP Assessment and Plan Time Spent With Patient Time: Total time managing care of this patient today ____ minutes.
[2024-04-13] MEDS: Metoclopramide HCl 10 MG/2 ML VIAL 5 MG IVPUSH ×2 (10:23→17:03)
--- NOTE | 2024-04-13 10:24 | MHC.CM.PN ---
pt is independent and working she has a ride home and goes to [facility] in [facility] for her pcp,she syaes she sees who ever is avaliabl;e
--- NOTE | 2024-04-13 11:10 | P.CNUR_ITS ---
History of Present Illness Consult details Consult date: 04/13/24 Narrative: cc: Right renal hemorrhage 39-year-old female Prior history nephrolithiasis Presents with sudden onset right-sided lower abdominal pain. Pain to 8 or 9/10. Nonradiating. Associated with nausea and vomiting. No fever or chills. No hematuria. 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 Positive active bleed. Recommend Interventional Radiology tomorrow Review of Systems 2 Constitutional: Constitutional: Reports as per HPI and Reports no additional constitutional complaints Cardiovascular: Cardiovascular: Reports as per HPI and Reports no additional cardiovascular complaints Respiratory: Respiratory: Reports as per HPI and Reports no additional respiratory complaints Gastrointestinal: Gastrointestinal: Reports as per HPI and Reports no additional gastrointestinal complaints Genitourinary: Genitourinary: Reports as per HPI Musculoskeletal: Musculoskeletal: Reports no additional musculoskeletal complaints and Reports as per HPI Neurologic: Reports system reviewed and no additional complaints, except as documented and Reports as per HPI PMFSH Past Medical History Medical History Hearing loss Tinnitus Social History Social History Household Members: Children Housing: House Patient Tobacco Use Status: Never used Tobacco e-Cigarette/Vaping Use: Never Used Substance Use Type: Marijuana service: No Meds Allergies Allergy/AdvReac Type Severity Reaction Status Date / Time tree nut Allergy Severe Anaphylaxis Verified 04/14/24 09:13 Active Medications: Current Medications Acetaminophen (Acetaminophen 325 Mg Tablet) 650 mg PO Q6H PRN PRN Reason: Pain, Mild (Pain Scale 1-3), fever or headache Calcium Carbonate (Calcium Carbonate 750 Mg Tab.Chew) 750 mg PO Q4H PRN PRN Reason: Heartburn Hydromorphone HCl (Hydromorphone Hcl 1 Mg/Ml Syringe) 0.5 mg IVPUSH Q2H PRN; Protocol PRN Reason: Pain, Severe (Pain Scale 7-10) Last Admin: 04/13/24 08:29 Dose: 0.5 mg Lactated Ringer's (Lr) 1,000 mls @ 100 mls/hr IVCONT .Q10H SHARITA Last Admin: 12/18/24 08:31 Dose: 100 mls/hr Magnesium Hydroxide (Milk Of Magnesia 30 Ml Oral.Susp) 30 ml PO DAILY PRN PRN Reason: Constipation Melatonin (Melatonin 3 Mg Tablet) 6 mg PO BEDTIME PRN PRN Reason: Insomnia Metoclopramide HCl (Metoclopramide Hcl 10 Mg/2 Ml Vial) 5 mg IVPUSH Q6H PRN PRN Reason: Nausea and Vomiting Last Admin: 04/13/24 10:23 Dose: 5 mg Ondansetron HCl (Ondansetron Hcl 4 Mg/2 Ml Vial) 4 mg IVPUSH Q8H PRN PRN Reason: Nausea and Vomiting Sodium Chloride (0.9 % Sodium Chloride Flush 3 Ml Syringe) 3 ml IVFLUSH QSHIFT [facility] Last Admin: 04/13/24 08:33 Dose: 3 ml Home Medications ?Medication ?Instructions ?Recorded ?Confirmed ?Last Taken ?Type No Known Home Meds 04/12/24 04/12/24 Unknown History Physical Exam 2 Vital Signs: Vital Signs: Last Vital Signs Temp 99.3 F 04/13/24 10:00 Pulse 71 04/13/24 10:00 Resp 16 04/13/24 10:00 BP 136/64 04/13/24 10:00 Pulse Ox 97 04/13/24 10:00 O2 Del Method Room Air 04/13/24 10:00 BMI result Body Mass Index 31.6 Const: General: cooperative, healthy appearing, comfortable and no acute distress Orientation/consciousness: patient oriented x3 HEENT: Face and sinus: Yes normal facial exam Mouth: moist mucous membranes Neck: Neck: Yes normal visual inspection, Yes full ROM and Yes trachea midline Chest: Chest palpation & inspection: normal inspection of the chest Resp: Effort & Inspection: normal respiratory effort, able to speak in complete sentences and no respiratory distress GI: Inspection: Yes normal to inspection Back/Spine/Pelvis: Cervical Spine: normal cervical lordosis Thoracic/Lumbar Spine: thoracic and lumbar spine normal to inspection Skin: General skin exam: no rashes or lesions noted Neuro: General: patient oriented x3, tone normal and moves all extremities Extrem: General: Yes normal to inspection and Yes capillary refill normal Results Labs 04/15/24 06:04 04/15/24 06:04 Labs: Abnormal lab results 04/12/24 04/12/24 04/12/24 Range/Units 13:43 16:19 18:04 WBC 14.0 H (4.8-10.8) X10*3/uL RBC (4.20-5.50) X10*6/uL Hgb 11.7 L (12.0-16.0) g/dl Hct 34.2 L (37.0-47.0) % Immature Gran % (Auto) (0.0-0.4) % Neut % (Auto) 76.5 H (45-73) % Lymph % (Auto) 15.8 L (20-40) % [place] # (Auto) (0.1-1.2) X10*3/uL Abs Immat Gran (auto) 0.04 H (0.00-0.03) X10*3/uL Absolute Neuts (auto) 10.7 H (2.0-8.3) x10*3/uL Chloride (96-108) mmol/L Random Glucose 163 H (60-115) mg/dL Total Bilirubin 1.3 H (0.0-1.0) mg/dL Ur Specific [place] >= 1.030 H (1.005-1.025) Urine Protein 30 (1+) H (Neg-Trace) mg/dL Urine Blood Large (3+) H (Negative) 04/13/24 Range/Units 05:46 WBC 17.6 H (4.8-10.8) X10*3/uL RBC 4.01 L (4.20-5.50) X10*6/uL Hgb 11.4 L (12.0-16.0) g/dl Hct 34.0 L (37.0-47.0) % Immature Gran % (Auto) 0.5 H (0.0-0.4) % Neut % (Auto) 82.2 H (45-73) % Lymph % (Auto) 8.8 L (20-40) % [place] # (Auto) 1.5 H (0.1-1.2) X10*3/uL Abs Immat Gran (auto) 0.08 H (0.00-0.03) X10*3/uL Absolute Neuts (auto) 14.4 H (2.0-8.3) x10*3/uL Chloride 110 H (96-108) mmol/L Random Glucose 136 H (60-115) mg/dL Total Bilirubin (0.0-1.0) mg/dL Ur Specific [place] (1.005-1.025) Urine Protein (Neg-Trace) mg/dL Urine Blood (Negative) Short CBC 04/12/24 04/12/24 04/13/24 Range/Units 13:43 18:04 05:46 WBC 14.0 H 17.6 H (4.8-10.8) X10*3/uL Hgb 14.1 11.7 L 11.4 L (12.0-16.0) g/dl Hct 41.9 34.2 L 34.0 L (37.0-47.0) % Plt Count 249 245 (160-400) X10*3/uL BMP 04/12/24 04/13/24 13:43 05:46 Sodium 142 142 Potassium 3.5 4.5 D Chloride 108 110 H Carbon Dioxide 24 23 BUN 12 13 Creatinine 0.83 0.72 Calcium 9.5 9.0 Liver Function 04/12/24 Range/Units 13:43 Total Bilirubin 1.3 H (0.0-1.0) mg/dL AST 27 (5-31) U/L ALT 15 (0-31) U/L Alkaline Phosphatase 73 (39-117) U/L Albumin 4.5 (3.5-5.0) g/dL Urine 04/12/24 Range/Units 16:19 Urine Color Yellow Urine Appearance Cloudy Urine pH 6.0 (5.0-9.0) Ur Specific [place] >= 1.030 H (1.005-1.025) Urine Protein 30 (1+) H (Neg-Trace) mg/dL Urine Glucose (UA) Negative (Negative) mg/dL All other labs normal. Assessment and Plan (1) Renal hemorrhage, right: Status: Acute Plan Risks, benefits and alternatives to therapy were discussed. These include but are not limited to infection, bleeding, damage to local organs and tissues, need for further interventions. Anesthetic risks regarding cardiac arrhythmia, blood clots, and potential mortality were discussed. The patient understands the typical recovery time and the outpatient nature of the procedure. After consideration of these risks the patient gives full informed consent and they wish to move ahead with the procedure. - right renal embolization Procedures Date of Service Date of Service: 04/15/24
--- NOTE | 2024-04-13 11:59 | PM.EVENT ---
Event Note Date of Service: 04/13/24 Event Note: 39 y/o female admitted with right renal hemorrhage. 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 Patient seen and examined. She reports 8/10 right sided abdominal pain. 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 -Will proceed with an angiogram and embolization of tumor tomorrow. Keep NPO after midnight -Please contact IR if patient's status changes. If she becomes hemodynamically unstable despite resuscitation after hours, will need transfer to tertiary center. Plan discussed and delineated by Dr. Kirby. Time Spent With Patient Time: Total time managing care of this patient today ____ minutes.
--- NOTE | 2024-04-13 18:05 | PC.NURSE ---
Patient feels nausea, vomited once, IV nausea medicine given.
--- NOTE | 2024-04-13 19:45 | PM.EVENT ---
Event Note Date of Service: 04/13/24 Event Note: Patient with palpitations. Heart rate irregularly irregular in the 120s. Patient denies history of atrial arrhythmias. EKG with AFib with RVR. Anticoagulation contraindicated in the setting of renal hemorrhage. Obtaining TSH and echo. Will transfer patient to telemetry. Ordered IV diltiazem. Blood pressure stable Time Spent With Patient Time: Total time managing care of this patient today ____ minutes.
[2024-04-13] MEDS: dilTIAZem HCL 50 MG/10 ML VIAL 10 MG IVPUSH (20:01)
--- NOTE | 2024-04-13 20:30 | PC.NURSE ---
Upon shift change this RN got a priority tiger text fro Med-tele, reporting fluctuating episodes of A-fib. Upon assessment of patient, leads were all intact, pt reports Chest pain, Vital signs assessed, Dr. Zuniga made aware. EKG ordered and obtained, New Meds ordered per JUN. Pt transferred upstairs to med-tele.
[2024-04-14] VITALS (32 sets, daily range): BP systolic 107–167; BP diastolic 55–92; PULSE 64–110; RESP 16–26; TEMP 36.3–37.3; O2SAT 92–97
[2024-04-14] MEDS: Metoclopramide HCl 10 MG/2 ML VIAL 5 MG IVPUSH ×2 (01:11→08:40)
[2024-04-14] MEDS: HYDROmorphone HCl 1 MG/ML SYRINGE 0.5 MG IVPUSH ×5 (01:14→17:55)
[2024-04-14] MEDS: Lactated Ringers 1,000 ML 100 ML IVCONT ×2 (06:06→12:59)
[2024-04-14 06:49] LABS: Anion Gap 11 (12-20); Blood Urea Nitrogen 8 mg/dL (9-16); Calcium 8.5 mg/dL (8.4-10.2); Carbon Dioxide 25 mmol/L (22-29); Chloride 108 mmol/L (96-108); Creatinine Clr Calc Pharmacy 103.4; Estimated Glomerular Filt Rate > 60; Glucose Random 98 mg/dL (60-115); Potassium 3.8 mmol/L (3.3-5.1); Sodium 140 mmol/L (135-145)
--- NOTE | 2024-04-14 07:00 | CA_ITS ---
Transthoracic Echocardiogram Patient (Last, First, Middle): Sarahy Trujillo, Gender: Female Date of : 1985 Age: 39 Procedure Date: 04/14/2024 Procedure Type: Transthoracic Echocardiogram [place] [facility] [place]: 152.4 cm Weight: 73.03 kg BSA: 1.70 m2 Heart Rate: 86 bpm BP: 158 / 75 mmHg Studio Sales Associate: MIRTHA Referring MD: Alina Zuniga MD Symptoms: afib with rvr Study Quality: Adequate ECG Rhythm: Sinus Conclusions: - The left ventricular systolic function is normal. The visually estimated ejection fraction is between 65-70%. - No obvious valvular pathology seen on this study. Findings Left Ventricle Normal left ventricular cavity size. There is normal left ventricular wall thickness. The left ventricular systolic function is normal. The visually estimated ejection fraction is between 65-70%. There is no evidence of regional wall motion abnormalities. Diastolic function is normal for age. Right Ventricle Normal right ventricular cavity size and systolic function. Atria The left atrium is mildly dilated. The right atrium is normal in size. Aortic Valve There is a normal trileaflet aortic valve. There is no aortic valve stenosis. There is no aortic valve regurgitation. Mitral Valve The mitral valve appears normal. There is trace mitral valve regurgitation. There is no mitral valve stenosis. Pulmonic Valve The pulmonic valve is likely normal. Tricuspid Valve There is trace tricuspid valve regurgitation. There is no evidence of pulmonary hypertension. Great Vessels The asc aorta and aortic arch are normal in size. Venous The inferior vena cava is normal in size and collapses greater than 50% with inspiration. Pericardium/Pleural There is a trivial pericardial effusion. Prior Study Comparison No prior study available for comparison. Recommendations, Care & Conclusions No obvious valvular pathology seen on this study. Measurements 2D Linear Measurements IVSd: 0.74 0.6-0.9/0.6-1.0 cm LVIDd: 4.34 3.9-5.3/4.2-5.9 cm LVIDd Index: 2.55 2.4-3.2/2.2-3.1 cm/m2 LVIDs: 2.54 2.0-3.6 cm LVPWd: 0.80 0.7-1.1 cm LA Diam: 4.10 2.7-3.8/3.0-4.0 cm LAIDs Index: 2.41 1.5-2.3 cm/m2 LV Mass: 126.84 67-162/88-224 g LV Mass Index: 74.61 43-95/49-115 g/m2 LVOT Diam: 1.90 3.0+(-)1.3 cm 2D Systolic Function EF 4C: 72.60 >55% EF 2C: 77.80 >55% EF BiP: 76.40 >55% Mitral Valve MV Pk E: 0.88 MV PK A: 0.88 MV Decel Time: 175.00 E/A: 1.00 E'Lateral: 11.60 E'Medial: 8.27 E/E' Med: 10.70 E/E' Lat: 7.60 PHT: 51.00 MVA PHT: 4.31 Decel Nuckolls: 5.04 Aortic Valve AoV Pk Dalton: 1.73 AoV Mn Dalton: 1.16 AoV VTI: 0.31 AoV Pk Grad: 12.00 Aov Mn Grad: 6.00 BRET Cont.VTI: 2.29 LVOT LVOT Pk Dalton: 1.37 LVOT Mn Dalton: 0.86 LVOT VTI: 0.25 LVOT Pk Grad: 8.00 LVOT Mn Grad: 4.00 LVOT Diam: 1.90 LVOT Area: 2.84 Diastolic Function MV Pk E: 0.88 MV Pk A: 0.88 E/A: 1.00 E'Medial: 8.27 E/E' Med: 10.70 E' Laterial: 11.60 E/E' Lat: 7.60 Right Ventricle TAPSE (mm): 25.40 TVS' Dalton: 15.00 Tricuspid Valve TR Pk Dalton: 1.96 TR Pk Grad: 15.00 RA Press: 3.00 RVSP: 18.00 Great Vessels Aorta Sinus of Valsalva: 2.90 2.0-3.5 cm Ao Asc: 3.20 2.1-3.4 cm Ao Arch: 2.60 Pulmonary Valve PV Pk Dalton: 1.05 Peak PV Grad: 4.00 Updated in Other Vendor System with Status of Final Redd Gómez MD electronically signed on 04/14/2024 11:50:37 AM with status of Final
[2024-04-14 07:04] LABS: Thyroid Stimulating Hormone 1.32 uIU/mL (0.32-4.0)
[2024-04-14 07:17] LABS: Hematocrit 29.7 % (37.0-47.0); Hemoglobin 10.1 g/dl (12.0-16.0); Mean Corpuscular Hemoglobin 28.8 pg (27.0-33.0); Mean Corpuscular Volume 84.6 fL (80.0-98.0); Mean Platelet Volume 12.6 fL (9.4-12.3); Platelet Count 206 X10*3/uL (160-400); Red Blood Count 3.51 X10*6/uL (4.20-5.50); White Blood Count 15.2 X10*3/uL (4.8-10.8)
[2024-04-14] MEDS: 0.9 % Sodium Chloride Flush 3 ML SYRINGE IVFLUSH (08:40)
--- NOTE | 2024-04-14 09:35 | P.PNIM_ITS ---
Subjective Subjective Date of Service: 04/14/24 Interval History: flank pain Physical Exam 2 Vital Signs: Vital Signs: Last Vital Signs Temp 98.4 F 04/14/24 07:44 Pulse 104 H 04/14/24 07:44 Resp 17 04/14/24 07:44 BP 140/79 H 04/14/24 07:44 Pulse Ox 94 04/14/24 07:44 O2 Del Method Room Air 04/14/24 07:44 BMI result Body Mass Index 31.6 General: AO X 3, no acute distress Resp: CTA bilateral, no accessory muscles used CVS: S1,S2,RRR GI: soft, non tender, non distended Neuro: motor grossly intact, alert Psych: appropriate affect, appropriate insight Objective Data Active Medications Acetaminophen (Acetaminophen 325 Mg Tablet) 650 mg PO Q6H PRN PRN Reason: Pain, Mild (Pain Scale 1-3), fever or headache Calcium Carbonate (Calcium Carbonate 750 Mg Tab.Chew) 750 mg PO Q4H PRN PRN Reason: Heartburn Hydromorphone HCl (Hydromorphone Hcl 1 Mg/Ml Syringe) 0.5 mg IVPUSH Q2H PRN; Protocol PRN Reason: Pain, Severe (Pain Scale 7-10) Last Admin: 04/14/24 08:40 Dose: 0.5 mg Documented By: TITO Lactated Ringer's (Lr) 1,000 mls @ 100 mls/hr IVCONT .Q10H [facility] Last Admin: 04/14/24 06:06 Dose: 100 mls/hr Documented By: ONIEL Magnesium Hydroxide (Milk Of Magnesia 30 Ml Oral.Susp) 30 ml PO DAILY PRN PRN Reason: Constipation Melatonin (Melatonin 3 Mg Tablet) 6 mg PO BEDTIME PRN PRN Reason: Insomnia Metoclopramide HCl (Metoclopramide Hcl 10 Mg/2 Ml Vial) 5 mg IVPUSH Q6H PRN PRN Reason: Nausea and Vomiting Last Admin: 04/14/24 08:40 Dose: 5 mg Documented By: TITO Ondansetron HCl (Ondansetron Hcl 4 Mg/2 Ml Vial) 4 mg IVPUSH Q8H PRN PRN Reason: Nausea and Vomiting Sodium Chloride (0.9 % Sodium Chloride Flush 3 Ml Syringe) 3 ml IVFLUSH QSHIFT [facility] Last Admin: 04/14/24 08:40 Dose: 3 ml Documented By: TITO Labs 04/14/24 05:44 04/14/24 05:44 Labs: Laboratory Results - last 24 hr 04/14/24 05:44 MCV 84.6 MCH 28.8 MCHC 34.0 RDW 14.0 Plt Count 206 MPV 12.6 H Absolute Nucleated RBC 0.000 Nucleated RBC % (auto) 0.0 Anion Gap 11 L Estim Creat Clear Calc 103.4 Estimated GFR > 60 Random Glucose 98 Calcium 8.5 TSH 1.32 Microbiology Microbiology Results: Microbiology 04/12/24 18:14 Blood Culture - Preliminary Blood - Venous No growth after 24 hours. 04/12/24 18:04 Blood Culture - Preliminary Blood - Venous No growth after 24 hours. Assessment and Plan (1) Renal hemorrhage, right: Status: Acute Plan 39F no significant PMH presented with right flank pain found to have acute renal hemorrhage Acute blood loss anemia due to renal hemorrhage due to suspected angiomyolipoma Plan for selective angio embolization today, 04/14/24 continue Dilaudid to 0.5 mg IV q.2 hours p.r.n. Monitor CBC new onset afib now in NSR, likely lone afib related to above, risks of AC outweigh benefits DVT prophylaxis-mechanical due to hemorrhage Full code reason for continued hospitalization: Pain control Quality Stroke Does the patient have a stroke diagnosis?: No VTE Prior VTE?: No VTE Risk Level:: Medical - moderate - high VTE Device Contraindication: N/A - Device Ordered VTE Drug Contraindication: Treatment Not Indicated
[2024-04-14] MEDS: fentaNYL citrate/PF 100 MCG/2 ML VIAL 50 MCG IVPUSH ×2 (15:15→16:15)
[2024-04-14] MEDS: Midazolam HCl/PF 2 MG/2 ML VIAL 0.5 MG IVPUSH (15:16)
[2024-04-14] MEDS: ceFAZolin Sodium 1 GM VIAL IVPUSH (15:31)
[2024-04-14] MEDS: Ketorolac Tromethamine 30 MG/ML VIAL IVPUSH (16:09)
[2024-04-14] MEDS: methylPREDNISolone Sod Succ 125 MG/2 ML VIAL IVPUSH (16:10)
[2024-04-14] MEDS: Acetaminophen 325 MG TABLET 650 MG PO (16:57)
[2024-04-14] MEDS: ondansetron HCL 4 MG/2 ML VIAL IVPUSH (16:59)
[2024-04-15] MEDS: HYDROmorphone HCl 1 MG/ML SYRINGE 0.5 MG IVPUSH ×2 (02:02→08:21)
[2024-04-15 03:24] VITALS: BP 110/64; PULSE 70; RESP 18; TEMP 36.3; O2SAT 91
[2024-04-15 06:52] LABS: Hematocrit 30.2 % (37.0-47.0); Hemoglobin 10.3 g/dl (12.0-16.0); Mean Corpuscular HGB Conc 34.1 g/dl (31.0-35.0); Mean Corpuscular Hemoglobin 28.6 pg (27.0-33.0); Mean Corpuscular Volume 83.9 fL (80.0-98.0); Mean Platelet Volume 12.4 fL (9.4-12.3); Platelet Count 233 X10*3/uL (160-400); Red Cell Distribution Width 13.4 % (11.0-16.0)
[2024-04-15 07:15] VITALS: BP 134/64; PULSE 88; RESP 18; TEMP 36.7; O2SAT 94
[2024-04-15 07:22] LABS: Anion Gap 14 (12-20); Blood Urea Nitrogen 11 mg/dL (9-16); Carbon Dioxide 23 mmol/L (22-29); Chloride 107 mmol/L (96-108); Creatinine Clr Calc Pharmacy 93.2; Estimated Glomerular Filt Rate > 60; Glucose Random 148 mg/dL (60-115); Sodium 140 mmol/L (135-145)
[2024-04-15] MEDS: Metoclopramide HCl 10 MG/2 ML VIAL 5 MG IVPUSH (08:21)
[2024-04-15] MEDS: 0.9 % Sodium Chloride Flush 3 ML SYRINGE IVFLUSH ×3 (08:26→20:52)
--- NOTE | 2024-04-15 08:55 | PM.EVENT ---
Event Note Date of Service: 04/15/24 Event Note: Interventional Radiology Progress Note S: Reports nausea and right flank pain. No vomiting O: 98/ 88/ 134/65 / 18/ 94% NAD, pleasant Skin: right groin c/d/i, no palpable hematoma Abd: soft, ttp throughout HCT- 34/30/30 A/P 39 y/o female POD#1 s/p right AML embolization -HCT stable -pain control -Abx x 1 week, will start Levaquin in hospital. Can switch to cipro when discharged - Prophylactic steroids to for post embolization syndrome. Started solumedrol 125 x 2 days, then taper for a week. Time Spent With Patient Time: Total time managing care of this patient today ____ minutes.
--- NOTE | 2024-04-15 09:56 | P.PNIM_ITS ---
Subjective Subjective Date of Service: 04/15/24 Interval History: in pain, in sinus Physical Exam 2 Vital Signs: Vital Signs: Last Vital Signs Temp 98.0 F 04/15/24 07:15 Pulse 88 04/15/24 07:15 Resp 18 04/15/24 07:15 BP 134/64 04/15/24 07:15 Pulse Ox 94 04/15/24 07:15 O2 Del Method Room Air 04/15/24 07:15 O2 Flow Rate 2 04/14/24 18:00 BMI result Body Mass Index 31.6 General: AO X 3, no acute distress Resp: CTA bilateral, no accessory muscles used CVS: S1,S2,RRR GI: soft, non tender, non distended Neuro: motor grossly intact, alert Psych: appropriate affect, appropriate insight Objective Data Active Medications Acetaminophen (Acetaminophen 325 Mg Tablet) 650 mg PO Q6H PRN PRN Reason: Pain, Mild (Pain Scale 1-3), fever or headache Acetaminophen (Acetaminophen 325 Mg Tablet) 650 mg PO ONCE PRN PRN Reason: Pain, Mild (Pain Scale 1-3) Last Admin: 04/14/24 16:57 Dose: 650 mg Documented By: DANGELBisi Calcium Carbonate (Calcium Carbonate 750 Mg Tab.Chew) 750 mg PO Q4H PRN PRN Reason: Heartburn Hydromorphone HCl (Hydromorphone Hcl 2 Mg Tablet) 1 mg PO Q3H PRN PRN Reason: Pain, Severe (Pain Scale 7-10) Levofloxacin (Levofloxacin 500 Mg Tablet) 500 mg PO Q24H SHARITA Stop: 04/22/24 08:29 Magnesium Hydroxide (Milk Of Magnesia 30 Ml Oral.Susp) 30 ml PO DAILY PRN PRN Reason: Constipation Melatonin (Melatonin 3 Mg Tablet) 6 mg PO BEDTIME PRN PRN Reason: Insomnia Methylprednisolone Sodium Succinate (Methylprednisolone Sod Succ 125 Mg/2 Ml Vial) 125 mg IVPUSH DAILY SHARITA Stop: 04/17/24 15:59 Metoclopramide HCl (Metoclopramide Hcl 10 Mg/2 Ml Vial) 5 mg IVPUSH Q6H PRN PRN Reason: Nausea and Vomiting Last Admin: 04/15/24 08:21 Dose: 5 mg Documented By: ERYN Ondansetron HCl (Ondansetron Hcl 4 Mg/2 Ml Vial) 4 mg IVPUSH Q8H PRN PRN Reason: Nausea and Vomiting Ondansetron HCl (Ondansetron Hcl 4 Mg/2 Ml Vial) 4 mg IVPUSH ONCE PRN PRN Reason: Nausea Last Admin: 04/14/24 16:59 Dose: 4 mg Documented By: DANGELL Oxycodone HCl (Oxycodone Hcl Immed Release 5 Mg Tablet) 5 mg PO ONCE PRN PRN Reason: Pain, Moderate(Pain Scale 4-6) Sodium Chloride (0.9 % Sodium Chloride Flush 3 Ml Syringe) 3 ml IVFLUSH QSHIFT [facility] Last Admin: 04/15/24 08:26 Dose: 3 ml Documented By: RUANES Labs 04/15/24 06:04 04/15/24 06:04 Labs: Laboratory Results - last 24 hr 04/15/24 06:04 MCV 83.9 MCH 28.6 MCHC 34.1 RDW 13.4 Plt Count 233 MPV 12.4 H Absolute Nucleated RBC 0.000 Nucleated RBC % (auto) 0.0 Anion Gap 14 Estim Creat Clear Calc 93.2 Estimated GFR > 60 Random Glucose 148 H Calcium 9.0 Microbiology Microbiology Results: Microbiology 04/12/24 18:14 Blood Culture - Preliminary Blood - Venous No growth after 48 hours. 04/12/24 18:04 Blood Culture - Preliminary Blood - Venous No growth after 48 hours. Assessment and Plan (1) Renal hemorrhage, right: Status: Acute Plan 39F no significant PMH presented with right flank pain found to have acute renal hemorrhage Acute blood loss anemia due to renal hemorrhage due to suspected angiomyolipoma s/p selective angio embolization 04/14/24 transition to po opiates levaquin for one week steroids Monitor CBC new onset afib now in NSR, likely lone afib related to above, risks of AC outweigh benefits DVT prophylaxis-mechanical due to hemorrhage Full code reason for continued hospitalization: Pain control Quality Stroke Does the patient have a stroke diagnosis?: No VTE Prior VTE?: No VTE Risk Level:: Medical - moderate - high VTE Device Contraindication: N/A - Device Ordered VTE Drug Contraindication: Treatment Not Indicated
[2024-04-15] MEDS: levoFLOXacin 500 MG TABLET PO (11:27)
[2024-04-15 12:00] VITALS: BP 121/64; PULSE 81; RESP 18; TEMP 36.4; O2SAT 94
[2024-04-15] MEDS: HYDROmorphone HCl 2 MG TABLET 1 MG PO ×3 (13:10→20:50)
--- NOTE | 2024-04-15 13:25 | MHC.CM.PN ---
EMR reviewed and per MD rounds, pt is not medically cleared for discharge due to management of pain control.
[2024-04-15 15:34] VITALS: BP 137/67; PULSE 88; RESP 18; TEMP 36.8; O2SAT 94
[2024-04-15] MEDS: methylPREDNISolone Sod Succ 125 MG/2 ML VIAL IVPUSH (16:11)
--- NOTE | 2024-04-15 17:26 | P.PNUR_ITS ---
Subjective Subjective Date of Service: 04/15/24 Interval history: Embolization yesterday Pain well-controlled Starting to ambulate Physical Exam 2 Vital Signs: Vital Signs: Last Vital Signs Temp 98.2 F 04/15/24 15:34 Pulse 88 04/15/24 15:34 Resp 18 04/15/24 15:34 BP 137/67 04/15/24 15:34 Pulse Ox 94 04/15/24 15:34 O2 Del Method Room Air 04/15/24 15:34 O2 Flow Rate 2 04/14/24 18:00 BMI result Body Mass Index 31.6 Const: General: cooperative, healthy appearing, comfortable and no acute distress Orientation/consciousness: patient oriented x3 HEENT: Face and sinus: Yes normal facial exam Mouth: moist mucous membranes Neck: Neck: Yes normal visual inspection, Yes full ROM and Yes trachea midline Chest: Chest palpation & inspection: normal inspection of the chest Resp: Effort & Inspection: normal respiratory effort, able to speak in complete sentences and no respiratory distress GI: Inspection: Yes normal to inspection Back/Spine/Pelvis: Cervical Spine: normal cervical lordosis Thoracic/Lumbar Spine: thoracic and lumbar spine normal to inspection Skin: General skin exam: no rashes or lesions noted Neuro: General: patient oriented x3, tone normal and moves all extremities Extrem: General: Yes normal to inspection and Yes capillary refill normal Urology Results Labs 04/15/24 06:04 04/15/24 06:04 Labs: Laboratory Results - last 24 hr 04/15/24 06:04 WBC 16.0 H RBC 3.60 L Hgb 10.3 L Hct 30.2 L MCV 83.9 MCH 28.6 MCHC 34.1 RDW 13.4 Plt Count 233 MPV 12.4 H Absolute Nucleated RBC 0.000 Nucleated RBC % (auto) 0.0 Sodium 140 Potassium 4.0 Chloride 107 Carbon Dioxide 23 Anion Gap 14 BUN 11 Creatinine 0.71 Estim Creat Clear Calc 93.2 Estimated GFR > 60 Random Glucose 148 H Calcium 9.0 Progress Note: A&P Assessment and plan (1) Renal hemorrhage, right: Status: Acute Assessment and Plan: Continue current management Time Spent With Patient Time: Total time managing care of this patient today ____ minutes. Progress Note: Quality Stroke Does the patient have a stroke diagnosis?: No
[2024-04-15 20:00] VITALS: BP 136/75; PULSE 87; RESP 20; TEMP 36.6; O2SAT 90
[2024-04-15 23:38] VITALS: BP 133/67; PULSE 86; RESP 20; TEMP 36.7
[2024-04-16] MEDS: HYDROmorphone HCl 2 MG TABLET 1 MG PO ×4 (02:00→16:39)
[2024-04-16 04:00] VITALS: BP 126/74; PULSE 70; RESP 20; TEMP 36.4; O2SAT 92
[2024-04-16 07:17] VITALS: BP 123/74; PULSE 77; RESP 20; TEMP 36.2; O2SAT 93
[2024-04-16] MEDS: methylPREDNISolone Sod Succ 125 MG/2 ML VIAL IVPUSH (08:09)
[2024-04-16] MEDS: 0.9 % Sodium Chloride Flush 3 ML SYRINGE IVFLUSH ×2 (08:09→19:50)
[2024-04-16] MEDS: levoFLOXacin 500 MG TABLET PO (09:35)
[2024-04-16 11:22] VITALS: BP 123/77; PULSE 78; RESP 20; TEMP 36.2; O2SAT 91
[2024-04-16 15:24] VITALS: BP 99/60; PULSE 91; RESP 18; TEMP 36.2; O2SAT 93
--- NOTE | 2024-04-16 16:57 | HO.PM.IMPN ---
Subjective Subjective Date of Service: 04/16/24 Interval History: ongoing pain Physical Exam Vital Signs: Vital Signs: Last Vital Signs Temp 97.2 F 04/16/24 15:24 Pulse 91 04/16/24 15:24 Resp 18 04/16/24 15:24 BP 99/60 04/16/24 15:24 Pulse Ox 93 04/16/24 15:24 O2 Del Method Room Air 04/16/24 15:24 O2 Flow Rate 2 04/14/24 18:00 BMI result Body Mass Index 31.6 Const: General: cooperative, healthy appearing, comfortable and no acute distress Orientation/consciousness: patient oriented x3 HEENT: Face and sinus: Yes normal facial exam Mouth: moist mucous membranes Neck: Neck: Yes normal visual inspection, Yes full ROM and Yes trachea midline Chest: Chest palpation & inspection: normal inspection of the chest Resp: Effort & Inspection: normal respiratory effort, able to speak in complete sentences and no respiratory distress GI: Inspection: Yes normal to inspection Back/Spine/Pelvis: Cervical Spine: normal cervical lordosis Thoracic/Lumbar Spine: thoracic and lumbar spine normal to inspection Skin: General skin exam: no rashes or lesions noted Neuro: General: patient oriented x3, tone normal and moves all extremities Extrem: General: Yes normal to inspection and Yes capillary refill normal Objective Data Active Medications Acetaminophen (Acetaminophen 325 Mg Tablet) 650 mg PO Q6H PRN PRN Reason: Pain, Mild (Pain Scale 1-3), fever or headache Acetaminophen (Acetaminophen 325 Mg Tablet) 650 mg PO ONCE PRN PRN Reason: Pain, Mild (Pain Scale 1-3) Last Admin: 04/14/24 16:57 Dose: 650 mg Documented By: DANGELL Calcium Carbonate (Calcium Carbonate 750 Mg Tab.Chew) 750 mg PO Q4H PRN PRN Reason: Heartburn Hydromorphone HCl (Hydromorphone Hcl 2 Mg Tablet) 1 mg PO Q3H PRN PRN Reason: Pain, Severe (Pain Scale 7-10) Last Admin: 04/16/24 16:39 Dose: 1 mg Documented By: ERYN Levofloxacin (Levofloxacin 500 Mg Tablet) 500 mg PO Q24H SHARITA Stop: 04/22/24 08:29 Last Admin: 04/16/24 09:35 Dose: 500 mg Documented By: ERYN Magnesium Hydroxide (Milk Of Magnesia 30 Ml Oral.Susp) 30 ml PO DAILY PRN PRN Reason: Constipation Melatonin (Melatonin 3 Mg Tablet) 6 mg PO BEDTIME PRN PRN Reason: Insomnia Methylprednisolone Sodium Succinate (Methylprednisolone Sod Succ 125 Mg/2 Ml Vial) 125 mg IVPUSH DAILY [facility] Stop: 04/17/24 15:59 Last Admin: 04/16/24 08:09 Dose: 125 mg Documented By: ERYN Metoclopramide HCl (Metoclopramide Hcl 10 Mg/2 Ml Vial) 5 mg IVPUSH Q6H PRN PRN Reason: Nausea and Vomiting Last Admin: 04/15/24 08:21 Dose: 5 mg Documented By: ERYN Ondansetron HCl (Ondansetron Hcl 4 Mg/2 Ml Vial) 4 mg IVPUSH Q8H PRN PRN Reason: Nausea and Vomiting Ondansetron HCl (Ondansetron Hcl 4 Mg/2 Ml Vial) 4 mg IVPUSH ONCE PRN PRN Reason: Nausea Last Admin: 04/14/24 16:59 Dose: 4 mg Documented By: DANGELL Oxycodone HCl (Oxycodone Hcl Immed Release 5 Mg Tablet) 5 mg PO ONCE PRN PRN Reason: Pain, Moderate(Pain Scale 4-6) Sodium Chloride (0.9 % Sodium Chloride Flush 3 Ml Syringe) 3 ml IVFLUSH QSHIFT [facility] Last Admin: 04/16/24 16:30 Dose: Not Given Documented By: ERYN Non-Admin Reason: Previously Administered Labs 04/15/24 06:04 04/15/24 06:04 Assessment and Plan (1) Renal hemorrhage, right: Status: Acute Plan 39F no significant PMH presented with right flank pain found to have acute renal hemorrhage Acute blood loss anemia due to renal hemorrhage due to suspected angiomyolipoma s/p selective angio embolization 04/14/24 transitioned to po opiates levaquin for one week steroids Monitor CBC new onset afib now in NSR, likely lone afib related to above, risks of AC outweigh benefits DVT prophylaxis-mechanical due to hemorrhage Full code reason for continued hospitalization: Pain control Quality Stroke Does the patient have a stroke diagnosis?: No VTE Prior VTE?: No VTE Risk Level:: Medical - moderate - high VTE Device Contraindication: N/A - Device Ordered VTE Drug Contraindication: Treatment Not Indicated
[2024-04-16] MEDS: Metoclopramide HCl 10 MG/2 ML VIAL 5 MG IVPUSH (18:02)
[2024-04-16 19:48] VITALS: BP 128/69; PULSE 77; RESP 20; TEMP 36.3; O2SAT 93
[2024-04-16 23:45] VITALS: BP 139/79; PULSE 75; RESP 20; TEMP 36.5; O2SAT 96
[2024-04-17 04:00] VITALS: BP 138/67; PULSE 82; RESP 20; TEMP 37.2; O2SAT 93
[2024-04-17] MEDS: Acetaminophen 325 MG TABLET 650 MG PO ×2 (04:01→09:01)
[2024-04-17 05:01] VITALS: RESP 16
[2024-04-17 08:00] VITALS: BP 135/71; PULSE 78; RESP 18; TEMP 36.4; O2SAT 94
--- NOTE | 2024-04-17 08:52 | PM.DS ---
DS: Providers Provider Date of Service: 04/17/24 Date of admission: 04/12/24 19:13 Date of discharge: 04/17/24 Primary care physician: LILA Hinson Consults: 04/12/24 16:19 Consult to Urology Stat Consulting Provider: Dimitry Ye Reason for consultation: Hemorrhagic angiomyolipoma, bleeding Has provider been notified: Yes DS: Diagnosis Discharge Diagnosis (1) Renal hemorrhage, right: Status: Acute DS: Summary Hospital Course Hospital Course: from initial hpi: 39-year-old female with pertinent history of nephrolithiasis, prediabetes who presents to the emergency department for evaluation of abdominal pain. Patient states she had sudden onset of right sided lower abdominal pain that started around noon. It was constant, nonradiating and progressive in nature. No history of similar pain in the past. Does have a history of kidney stones. Also has associated nausea and vomiting. No fever or chills. Grandfather with history of kidney cancer. No chest pain, palpitations, shortness of breath, changes in urinary or bowel habits. In the emergency department, imaging with acute renal hemorrhage. Urology was consulted who requested admission with IV analgesia and IV fluids. hospital course: Patient was admitted for acute blood loss anemia due to renal hemorrhage due to suspected angiomyolipoma. She underwent selective angio embolization on 04/14/24. Patient was treated with IV opiates for pain, prophylactic fluoroquinolone, IV steroids. We will continue Cipro for 5 more days at discharge and prednisone 50 mg daily for 5 more days at discharge. She will follow up with IR or urology to repeat imaging in about 12 weeks. Course was complicated by episode of atrial fibrillation. This was brief and patient converted to normal sinus rhythm. Likely this was lone AFib due to pain and renal hemorrhage. Would not pursue specific treatment at this time. Patient is feeling better will be discharged home. Time Attestation Discharge Coordination Time (in mins): 34 Quality: Safe Use of Opioids Does Pt have an Active Cancer Diagnosis on the Problem List?: No Quality: Stroke Does the patient have a stroke diagnosis?: No Physical Exam Vital Signs: Vital Signs: Last Vital Signs Temp 97.5 F 04/17/24 08:00 Pulse 78 04/17/24 08:00 Resp 18 04/17/24 08:00 BP 135/71 04/17/24 08:00 Pulse Ox 94 12/22/24 08:00 O2 Del Method Room Air 04/17/24 08:00 O2 Flow Rate 2 04/14/24 18:00 BMI result Body Mass Index 31.6 General: AO X 3, no acute distress Resp: CTA bilateral, no accessory muscles used CVS: S1,S2,RRR GI: soft, non tender, non distended Neuro: motor grossly intact, alert Psych: appropriate affect, appropriate insight DS: Data Data Completed and Pending Labs on day of discharge: Preliminary micro results at discharge 04/12/24 18:14 Blood Culture - Preliminary Blood - Venous No growth after 48 hours. 04/12/24 18:04 Blood Culture - Preliminary Blood - Venous No growth after 48 hours. Discharge Plan Discharge Anticipated Discharge Date/Time: 04/17/24 08:49 Patient Disposition: Home, Self-Care Discharge Diagnosis: renal hemmorhage Referrals: Dimitry Ye MD [Physician] - 1 Month Physician,Lauren J [Physician] - 1 Week Discharge Medications: New ciprofloxacin HCl 500 mg tablet 500 mg PO BID Qty: 10 0RF prednisone 50 mg tablet 50 mg PO DAILY Qty: 5 0RF hydromorphone 2 mg Tablet 1 mg PO Q3H PRN (Reason: Pain, Severe (Pain Scale 7-10)) Qty: 10 0RF Rx Instructions: Partial Fill upon patient request. Discharge Orders: Discharge Order (Routine); Ordered 04/17/24 Ordered By: Berny Saucedo Diet: Advance to usual diet Activity on Discharge: As tolerated Stand Alone Forms: Patient Portal Discharge page Print Language: [place] Care Plan Goals: recovery Health Concerns: renal hemorrhage Plan of Treatment: 12 weeks repeat imaging, follow up with either IR or urology Assessment: see above
[2024-04-17] MEDS: predniSONE 10 MG TABLET 50 MG PO (08:57)
[2024-04-17] MEDS: 0.9 % Sodium Chloride Flush 3 ML SYRINGE IVFLUSH (08:57)
[2024-04-17] MEDS: levoFLOXacin 500 MG TABLET PO (08:57)
--- NOTE | 2024-04-17 09:54 | MHC.CM.PN ---
Patient has been medically cleared for dc to home today, self care.
== END 2024-04-17 12:41 | disposition home or self-care (01) | DRG 674 ==
LOC: HO.ED 14:44 → HO.EDOVER 19:28 → HO.S3 19:59 → HO.IMC 04-13 19:46
PROVIDERS: Internal Medicine; Physician Assistant; Student in an Organized Health Care Education/Training Program; Admitting Provider Student in an Organized Health Care Education/Training Program; Emergency Provider Emergency Medicine Emergency Medical Services; PCP Registered Nurse; Visit Provider Internal Medicine
PROC: 04V93DZ Restriction of Right Renal Artery with Intraluminal Device, Percutaneous Approach (ICD-10-PCS; principal; 2024-04-14 14:30)
DX: N28.89 Other specified disorders of kidney and ureter (principal); D62 Acute posthemorrhagic anemia; D17.71 Benign lipomatous neoplasm of kidney; R73.03 Prediabetes; I48.91 Unspecified atrial fibrillation; Z87.442 Personal history of urinary calculi
CPT/HCPCS: 36415; 37243; 74176; 74177; 80048; 80053; 81001; 83690; 84443; 84702; 85014; 85018; 85025; 85027; 86850; 86900; 86901; 87040; 93005; 93306; 99152; 99153; 99285; C1769; C1887; C1889; J0690; J0696; J1171; J1885; J2250; J2270; J2405; J2765; J2919; J3010; J7120; Q9957; Q9967

== ENCOUNTER → 2024-04-12 13:08 | Outpatient (BNV) | payer SELFPAY | PROVIDERS: Emergency Provider Emergency Medicine Emergency Medical Services; Visit Provider Radiology Diagnostic Radiology | DX: N28.89 Other specified disorders of kidney and ureter (principal) | CPT/HCPCS: 74177 ==

== ENCOUNTER → 2024-04-12 14:12 | Outpatient (BNV) | payer SELFPAY | PROVIDERS: Emergency Provider Emergency Medicine Emergency Medical Services; Visit Provider Internal Medicine | DX: R00.1 Bradycardia, unspecified (principal) | CPT/HCPCS: 93010 ==

== ENCOUNTER 2024-04-12 19:13 | Outpatient (BNV) | payer SELFPAY | END 2024-04-14 07:00 | PROVIDERS: Admitting Provider Student in an Organized Health Care Education/Training Program; Emergency Provider Emergency Medicine Emergency Medical Services; Visit Provider Internal Medicine | DX: I48.91 Unspecified atrial fibrillation (principal) | CPT/HCPCS: 93306 ==

== ENCOUNTER 2024-04-12 19:13 | Outpatient (BNV) | payer SELFPAY | END 2024-04-14 14:30 | PROVIDERS: Admitting Provider Student in an Organized Health Care Education/Training Program; Emergency Provider Emergency Medicine Emergency Medical Services; Visit Provider Student in an Organized Health Care Education/Training Program | DX: N28.89 Other specified disorders of kidney and ureter (principal) | CPT/HCPCS: 37243; 76937; 99152 ==

== ENCOUNTER 2024-04-12 19:13 | Outpatient (BNV) | payer SELFPAY | END 2024-04-13 19:35 | PROVIDERS: Admitting Provider Student in an Organized Health Care Education/Training Program; Emergency Provider Emergency Medicine Emergency Medical Services; Visit Provider Internal Medicine | DX: R94.31 Abnormal electrocardiogram [ECG] [EKG] (principal) | CPT/HCPCS: 93010 ==

== ENCOUNTER → 2024-04-12 19:13 | Outpatient (BNV) | payer SELFPAY | PROVIDERS: Admitting Provider Student in an Organized Health Care Education/Training Program; Emergency Provider Emergency Medicine Emergency Medical Services; Visit Provider Student in an Organized Health Care Education/Training Program | DX: N28.89 Other specified disorders of kidney and ureter (principal) | CPT/HCPCS: 99222; 99232; 99239; 99499 ==

== ENCOUNTER → 2024-04-12 19:13 | Outpatient (BNV) | payer SELFPAY | PROVIDERS: Admitting Provider Student in an Organized Health Care Education/Training Program; Emergency Provider Emergency Medicine Emergency Medical Services; PCP Registered Nurse; Visit Provider Urology | DX: N28.89 Other specified disorders of kidney and ureter (principal) | CPT/HCPCS: 99222; 99232 ==